=== PATIENT | female | born 1990 | race African-American/Black ===

== ENCOUNTER 2018-01-03 09:45 | Emergency (ER) | payer OTHER ==
[2018-01-03 09:51] VITALS: BP 131/61; BMI 26.6
--- NOTE | 2018-01-03 10:24 | DR.GENAD ---
HPI - PCP Primary Care Physician: NFD - Complaint/Symptoms Chief Complaint Doctors Comments: Patient presents with complaint of cough and sore throat for a couple of days. She states that her son was seen by the physician on yesterday and was not given medication for cough. Chief Complaint:: SORE THROAT AND COUGH X 2 DAYS - Source History Provided: Patient - Mode of Arrival Mode of Arrival: Ambulatory - Timing Onset of Chief Complaint: 01/01/18 PMH - PMH Past Medical History: No Past Surgical History: Yes Surgical History: Other Past Surgical History Comment: HERNIA REPAIR AT AGE 2 - Family History History of Family Medical Conditions: Yes Family Medical History: Diabetes Mellitus, Hypertension - Social History Does patient currently use any type of tobacco product: Yes Have you used tobacco products in the last 12 months: Yes Type of Tobacco Use: Cigarettes How many years tobacco product used: 7 Does any household member use tobacco: No Alcohol Use: None Do you use any recreational Drugs:: No Lives With: Family Lives Where: Home - infectious screening In the last 2 months have you had wt loss of >10#?: NO Have you had fever, night sweats or hemotysis?: No Have you traveled outside the country in the last 6 months?: No Isolation: Standard ROS - Review of Systems Eyes: No Symptoms Reported ENTM: No Symptoms Reported Respiratoy: No Symptoms Reported Cardiovascular: No Symptoms Reported Gastrointestinal/Abdominal: No Symptoms Reported Genitourinary: No Symptoms Reported Neurological: No Symptoms Reported Musculoskeletal: No Symptoms Reported Integumentary: No Symptoms Reported Hematologic/Lymphatic: No Symptoms Reported Endocrine: No Symptoms Reported Psychiatric: No Symptoms Reported All Other Systems: Reviewed and Negative PE - Vital Signs Vitals: Temperature 99.1 F Pulse Rate 97 Respiratory Rate 20 Blood Pressure 131/61 O2 Sat by Pulse Oximetry 100 - General Limitations: No Limitations General Appearance: Alert, In No Apparent Distress - Head Head Exam: Normal Inspection, Atraumatic - Eyes Eye exam: Normal Appearance, PERRL, EOMI - ENT ENT Exam: Normal Exam, Normal Oropharynx External Ear Exam: Normal External Inspection TM/Canal Exam: Bilateral Normal Nose Exam: Normal Nose Exam Mouth Exam: Normal Inspection Throat Exam: Normal Inspection - Neck Neck Exam: Normal Inspection, Full ROM - Chest Chest Inspection: Normal Inspection - Respiratory Respiratory Exam: Normal Lung Sounds Bilat, Accessory Muscle Use Respiratory Exam: Bilateral Clear to Auscultation - Cardiovascular Cardiovascular Exam: Regular Rate - Abdominal Exam Abdominal Exam: Normal Inspection Abdominal Tenderness: negative: RUQ, RLQ, LUQ, LLQ, Epigastrium, Suprapubic, Diffuse, Mild, Moderate, Severe, Other - Extremities Extremities Exam: Normal Inspection, Full ROM - Back Back Exam: Normal Inspection - Psychiatric Psychiatric Exam: Normal Affect - Skin Skin Exam: Warm, Dry, Intact Course - Reevaluation 1st: Unchanged ROR - Labs Reviewed Laboratory Results Reviewed?: Yes (strep negative) Laboratory: S. pyogenes (TEM-PCR) Not detected (NOT DETECT) 01/03/18 10:33 - Diagnosis Discharge Problem: Upper respiratory infection, viral - Discharge Plan Condition: Stable - Follow ups/Referrals Follow ups/Referrals: NFD,None [Primary Care Provider] - 3 days - Instructions
== END 2018-01-03 11:22 | disposition home or self-care (01) ==
LOC: ER 10:02
DX: J06.9 Acute upper respiratory infection, unspecified (principal)
CPT/HCPCS: 87651; 99282

== ENCOUNTER 2018-01-06 10:09 | Emergency (ER) | payer OTHER ==
[2018-01-06 10:17] VITALS: BP 155/68; BMI 25.5
[2018-01-06] MEDS ORDERED: MOTRIN TAB 800 MG PO ONE ×2 (10:28→10:30)
[2018-01-06] MEDS ORDERED: LR 1000 ML IV 1,000 ML IV ONE ×2 (10:29→10:34)
[2018-01-06 10:56] LABS: BLOOD UREA NITROGEN 8 mg/dL (7-18); CALCIUM 8.4 mg/dL (8.5-10.1); CARBON DIOXIDE 25.9 mmol/L (21-32); CHLORIDE 99 mmol/L (98-107); CREATININE 0.97 mg/dL (0.55-1.02); SODIUM 135 mmol/L (136-145); eGFR BLACK RACES > 60 (>60); eGFR NON BLACK RACES > 60 (>60)
--- NOTE | 2018-01-06 10:57 | DR.URIAD ---
HPI - Time Seen Time seen: 10:25 - PCP Primary Care Physician: NFD - Complaint Chief Complaint Doctors Comments: Patient presents with complaint of flu-like symptoms onset two days prior; she seen in the ED work up negative. Patient states that she has not had vomitng or diarrhea. Chief Complaint:: PT C/O BODYACHES, SORE THROAT , FEVER , AND CHILLS THAT STARTED ON FRIDAY AND PT SAYS SHE CAME TO ER FRIDAY AND A STREP SWAB WAS DONE AND IT WAS ( - ) AND SHE WAS GIVEN COUGH MEDS ,, AND HER SYMPTOMS HAVE WORSENED ,, BR - Source History Provided: Patient - Mode of Arrival Mode of Arrival: Ambulatory - Timing Onset of Chief Complaint: 01/02/18 - Quality Shortness of Breath: none PMH - PMH Past Medical History: No Past Surgical History: Yes Surgical History: Other Past Surgical History Comment: HERNIA REPAIR,, - Family History History of Family Medical Conditions: Yes Family Medical History: Diabetes Mellitus, Hypertension - Social History Does patient currently use any type of tobacco product: Yes Have you used tobacco products in the last 12 months: Yes Type of Tobacco Use: Cigarettes Does any household member use tobacco: No Alcohol Use: None Do you use any recreational Drugs:: No Lives With: Family Lives Where: Home - infectious screening In the last 2 months have you had wt loss of >10#?: NO Have you had fever, night sweats or hemotysis?: No Have you traveled outside the country in the last 6 months?: No Isolation: Standard ROS - Review of Systems Eyes: No Symptoms Reported ENTM: No Symptoms Reported Respiratoy: No Symptoms Reported Cardiovascular: Other (tachycardia) Gastrointestinal/Abdominal: No Symptoms Reported, Abdominal Pain, Nausea Genitourinary: No Symptoms Reported Neurological: Headache Musculoskeletal: Muscle Pain Integumentary: No Symptoms Reported Hematologic/Lymphatic: No Symptoms Reported Endocrine: No Symptoms Reported Psychiatric: No Symptoms Reported All Other Systems: Reviewed and Negative PE - Vital Signs Vitals: Temperature 102.0 F Pulse Rate 121 Respiratory Rate 20 Blood Pressure 155/68 O2 Sat by Pulse Oximetry 100 - General Limitations: No Limitations General Appearance: Alert, In No Apparent Distress - Head Head Exam: Normal Inspection, Atraumatic - Eyes Eye exam: Normal Appearance, PERRL - ENT ENT Exam: Normal Exam External Ear Exam: Normal External Inspection TM/Canal Exam: Bilateral Normal Nose Exam: Normal Nose Exam Nasal Speculum Exam: Bilateral Normal Mouth Exam: Normal Inspection Throat Exam: Other (erythema) - Neck Neck Exam: Lymphadenopathy (left, non erythematous slight tenderness) - Chest Chest Inspection: Normal Inspection - Respiratory Respiratory Exam: Normal Lung Sounds Bilat Respiratory Exam: Bilateral Clear to Auscultation - Cardiovascular Cardiovascular Exam: Tachycardia - Abdominal Exam Abdominal Exam: Normal Inspection Abdominal Tenderness: negative: RUQ, RLQ, LUQ, LLQ, Epigastrium, Suprapubic, Diffuse, Mild, Moderate, Severe, Other - Extremeties Extremities Exam: Normal Inspection - Back Back Exam: Normal Inspection - Neurologic Neurological Exam: Alert, Oriented X3, CN II-XII Intact - Psychiatric Psychiatric Exam: Normal Affect - Skin Skin Exam: Warm, Dry, Intact Course - Reevaluation 1st: Improved - Education/Counseling Educated On: Treatment, Diagnosis, Prognosis, Needs for Follow Up ROR - Labs Reviewed Result Diagrams: 01/06/18 10:45 01/06/18 10:45 Laboratory: WBC 11.4 X10^3/uL (3.6-10.0) H 01/06/18 10:45 RBC 4.03 X10^6/uL (3.5-5.4) 01/06/18 10:45 Hgb 12.7 g/dL (12.0-16.0) 01/06/18 10:45 Hct 36.8 % (36.0-47.0) 01/06/18 10:45 MCV 91.2 fL (80.0-100.0) 01/06/18 10:45 MCH 31.4 pg (27.0-34.0) 01/06/18 10:45 MCHC 34.5 g/dL (33.0-35.0) 01/06/18 10:45 RDW 13.0 % (11.6-16.5) 01/06/18 10:45 Plt Count 216 X10^3/uL (150.0-450.0) 01/06/18 10:45 Plt Count Comment Adequate (ADEQUATE) 01/06/18 10:45 MPV 7.5 fL (7.4-11.0) 01/06/18 10:45 Neut % (Auto) 82.2 % (42.0-75.0) H 01/06/18 10:45 Lymph % (Auto) 6.2 % (21.0-51.0) L 01/06/18 10:45 [place] % (Auto) 11.3 % (0.0-13.0) 01/06/18 10:45 Eos % (Auto) 0.1 % (0.9-2.9) L 01/06/18 10:45 Baso % (Auto) 0.2 % (0.2-1.0) 01/06/18 10:45 Neut # (Auto) 9.3 x10^3/uL (2.2-4.8) H 01/06/18 10:45 Lymph # (Auto) 0.7 X10^3/uL (1.3-2.9) L 01/06/18 10:45 [place] # (Auto) 1.3 x10^3/uL (0.3-0.8) H 01/06/18 10:45 Eos # (Auto) 0.0 x10^3/uL (0.0-0.2) 01/06/18 10:45 Baso # (Auto) 0.0 X10^3/uL (0.0-0.1) 01/06/18 10:45 Absolute Nucleated RBC 0.0 /100WBC 01/06/18 10:45 Total Counted 100 01/06/18 10:45 Neutrophils % (Manual) 86 % (39-76) H 01/06/18 10:45 Band Neutrophils % 2 % (0-10) 01/06/18 10:45 Lymphocytes % (Manual) 8 % (13-43) L 01/06/18 10:45 Monocytes % (Manual) 4 % (4-9) 01/06/18 10:45 Plt Morphology Comment Normal (NORMAL) 01/06/18 10:45 RBC Morphology Normal (NORMAL) 01/06/18 10:45 Sodium 135 mmol/L (136-145) L 01/06/18 10:45 Corrected Sodium TNP 01/06/18 10:45 Potassium 3.9 mmol/L (3.5-5.1) 01/06/18 10:45 Chloride 99 mmol/L (98-107) 01/06/18 10:45 Carbon Dioxide 25.9 mmol/L (21-32) 01/06/18 10:45 BUN 8 mg/dL (7-18) 01/06/18 10:45 Creatinine 0.97 mg/dL (0.55-1.02) 01/06/18 10:45 Est GFR (MDRD) Af Amer > 60 (>60) 01/06/18 10:45 Est GFR (MDRD) Non-Af > 60 (>60) 01/06/18 10:45 Glucose 109 mg/dL (65-99) H 01/06/18 10:45 Calcium 8.4 mg/dL (8.5-10.1) L 01/06/18 10:45 HCG, Qual Negative <10 mIU/mL 01/06/18 10:45 Specimen Type Clean catch urine 01/06/18 10:45 Urine Color Yellow (YELLOW) 01/06/18 10:45 Urine Appearance Hazy (CLEAR) 01/06/18 10:45 Urine pH 7.0 (5.0 - 8.0) 01/06/18 10:45 Ur Specific [place] 1.005 (1.000-1.030) 01/06/18 10:45 Urine Protein 2+ (NEGATIVE) 01/06/18 10:45 Urine Glucose (UA) Negative (NEGATIVE) 01/06/18 10:45 Urine Ketones Negative (NEGATIVE) 01/06/18 10:45 Urine Occult Blood 5+ (NEGATIVE) 01/06/18 10:45 Urine Nitrite Negative (NEGATIVE) 01/06/18 10:45 Urine Bilirubin Negative (NEGATIVE) 01/06/18 10:45 Urine Urobilinogen 3+ (NORMAL) 01/06/18 10:45 Ur Leukocyte Esterase 1+ (NEGATIVE) 01/06/18 10:45 Urine RBC Tntc /HPF (NONE SEEN) 01/06/18 10:45 Urine WBC 3-5 /HPF (NONE SEEN) 01/06/18 10:45 Ur Squamous Epith Cells Many /HPF (NEGATIVE) 01/06/18 10:45 Urine Bacteria Negative /HPF (NEGATIVE) 01/06/18 10:45 Ur Culture Indicated? No/not indicated 01/06/18 10:45 Influenza Type A (PCR) Negative (NEGATIVE) 01/06/18 10:24 Influenza Type B (PCR) Negative (NEGATIVE) 01/06/18 10:24 - XRAY XRAY Interpreted by: Radiologist (Chest: heart size and pulmonary vasculature are normal. Lungs are clear with no infiltrate or significant effusion on eighte side. Bilateral nipple piercings are an incidental findings. No acute cardiopulmonary abnormality.) - Diagnosis Discharge Problem: Upper respiratory infection Qualifiers: URI type: unspecified viral URI Qualified Code(s): J06.9 - Acute upper respiratory infection, unspecified - Discharge Plan Condition: Stable - Follow ups/Referrals Follow ups/Referrals: NFD,None [Primary Care Provider] - 3 days - Instructions
[2018-01-06 11:00] LABS: BASOPHILS % (AUTO) 0.2 % (0.2-1.0); EOSINOPHILS % (AUTO) 0.1 % (0.9-2.9); HEMATOCRIT 36.8 % (36.0-47.0); HEMOGLOBIN 12.7 g/dL (12.0-16.0); LYMPHOCYTES # (AUTO) 0.7 X10^3/uL (1.3-2.9); LYMPHOCYTES % (AUTO) 6.2 % (21.0-51.0); MEAN CORPUSCULAR HEMOGLOBIN 31.4 pg (27.0-34.0); MEAN CORPUSCULAR HGB CONC 34.5 g/dL (33.0-35.0); MEAN CORPUSCULAR VOLUME 91.2 fL (80.0-100.0); MEAN PLATELET VOLUME 7.5 fL (7.4-11.0); MONOCYTES # (AUTO) 1.3 x10^3/uL (0.3-0.8); MONOCYTES % (AUTO) 11.3 % (0.0-13.0); NEUTROPHILS # (AUTO) 9.3 x10^3/uL (2.2-4.8); NEUTROPHILS % (AUTO) 82.2 % (42.0-75.0); PLATELET COUNT 216 X10^3/uL (150.0-450.0); RED BLOOD COUNT 4.03 X10^6/uL (3.5-5.4); WHITE BLOOD COUNT 11.4 X10^3/uL (3.6-10.0)
[2018-01-06 11:08] LABS: BILIRUBIN,URINE NEGATIVE (NEGATIVE); BLOOD/HEMOGLOBIN,URINE 5+ (NEGATIVE); GLUCOSE, URINE NEGATIVE (NEGATIVE); KETONES,URINE NEGATIVE (NEGATIVE); LEUKOCYTE ESTERASE ,URINE 1+ (NEGATIVE); NITRITES,URINE NEGATIVE (NEGATIVE); PROTEIN,URINE 2+ (NEGATIVE); UROBILINOGEN,URINE 3+ (NORMAL)
[2018-01-06 11:10] LABS: APPEARANCE,URINE HAZY (CLEAR); COLOR,URINE YELLOW (YELLOW); RBC,URINE TNTC /HPF (NONE SEEN); SQUAMOUS EPITHELIAL CELL,UR MANY /HPF (NEGATIVE)
[2018-01-06 11:11] LABS: BACTERIA,URINE NEGATIVE /HPF (NEGATIVE)
[2018-01-06 11:17] LABS: BAND NEUTROPHILS % 2 % (0-10); PLATELET MORPHOLOGY COMMENT NORMAL (NORMAL)
[2018-01-06 11:24] LABS: SERUM PREGNANCY TEST, QUAL NEGATIVE <10 mIU/mL
--- NOTE | 2018-01-06 11:41 | RAD ---
Exam: Portable chest 01/14/2018 at 11:35 a.m. History: 27-year-old female with fever and body aches Comparison: None Findings: Heart size and pulmonary vasculature are normal. Lungs are clear with no infiltrate or sign ificant effusion on either side. Bilateral nipple piercings are an incidental finding IMPRESSION: No acute cardiopulmonary abnormality is seen on this exam Reported By:
== END 2018-01-06 12:22 | disposition home or self-care (01) ==
LOC: ER 10:22
DX: J06.9 Acute upper respiratory infection, unspecified (principal)
CPT/HCPCS: 36415; 71045; 80048; 81001; 84703; 85025; 87502; 96365; 99283; A4222; J7120